=== PATIENT | female | born 1995 | race Hispanic/Latino ===

== ENCOUNTER 2017-04-12 08:48 | Emergency (ER) | payer SELFPAY ==
[2017-04-12 09:31] LABS: #Basophils 0.1 thou/uL (0.0-0.2); #Eosinphils 0.2 thou/uL (0.0-0.7); #Lymphocytes 2.1 thou/uL (1.20-3.40); #Monocytes 0.4 thou/uL (0.11-0.59); #Neutrophils 1.5 thou/uL (1.40-6.50); %Basophils 1.5 % (0.0-1.0); %Eosinophils 4.6 % (0.0-10.0); %Lymphocytes 48.5 % (28.0-48.0); Mean Platelet Volume 7.2 fL (7.4-10.4); Red Blood Cell (RBC) Count 4.58 mill/uL (4.00-5.20); White Blood Cell (WBC) Count 4.3 thou/uL (4.8-10.8)
[2017-04-12 09:33] LABS: Bilirubin Negative (Negative); Blood, Urine Large (Negative); Glucose, Urine (Dipstick) Negative (Negative); Ketone, Urine Negative (Negative); Nitrite Negative (Negative); Protein, Urine (Dipstick) Trace mg/dL (Neg-Trace)
[2017-04-12 09:35] LABS: Bacteria/HPF None Seen HPF (None Seen); Hyaline Casts/LPF 0-3 HYALINE CAST LPF (0-3 Hyaline); RBC/HPF GREATER THAN 50-TNTC HPF (0-3)
[2017-04-12 09:52] LABS: ALT (SGPT) 741 U/L (8-55); AST (SGOT) 280 U/L (5-30); Alkaline Phosphatase 129 U/L (40-150); Anion Gap 11 mmol/L (10-20); BUN (Urea Nitrogen) 9 mg/dL (8.4-21.0); Bilirubin, Total 0.8 mg/dL (0.2-1.2); Calc. Creatinine Clearance 0 mL/min (70-130); Calcium 9.5 mg/dL (7.8-10.44); Carbon Dioxide 27 mmol/L (22-29); Chloride 105 mmol/L (98-107); Estimated GFR-MDRD Greater than 90
[2017-04-12] MEDS ORDERED: Ibuprofen 800 MG TAB ONE (10:38)
[2017-04-12] MEDS ORDERED: Ciprofloxacin 500 MG TAB ONE (10:38)
--- NOTE | 2017-04-12 11:25 | ULT ---
PELVIC ULTRASOUND: Date: 04/12/17 COMPARISON: None. HISTORY: Vaginal spotting/bleeding. Positive home test. TECHNIQUE: Multiplanar Kendrick scale and color Doppler images were obtained in a transabdominal and transvaginal p elvic ultrasound. Spectral analysis of the Doppler waveforms performed. FINDINGS: The uterus is retroverted. No gestational sac is seen within the uterus. The endometrial stripe is n ormal in thickness measuring 9.0 mm. No focal uterine abnormality is seen. A small amount of free fluid is seen in the pelvis. Both ovaries are normal in size and appearance a nd demonstrate normal internal flow. No gestational sac is seen in the adnexal regions. IMPRESSION: No evidence of intrauterine or ectopic . POS: [facility]
== END 2017-04-12 10:54 | disposition home or self-care (01) ==
LOC: ERS 08:48
DX: N76.0 Acute vaginitis (principal); N39.0 Urinary tract infection, site not specified; F41.9 Anxiety disorder, unspecified; F31.9 Bipolar disorder, unspecified; F43.10 Post-traumatic stress disorder, unspecified; F17.210 Nicotine dependence, cigarettes, uncomplicated
CPT/HCPCS: 36415; 76856; 80053; 81003; 81015; 84702; 85025; 87480; 87491; 87510; 87591; 87660